=== PATIENT | male | born 1955 | race Caucasian/White ===

== ENCOUNTER 2021-10-23 08:03 | Emergency (ER) | payer MEDICARE ==
[~2021-10-23] VITALS: Ht 185.4 cm; Wt 86.0 kg
[2021-10-23 09:23] LABS: HEMATOCRIT 44.9 % (39.0-50.0); HEMOGLOBIN 15.2 g/dl (14.0-18.0); IMMATURE GRANULOCYTES 0.6 % (0.0-5.0); MEAN CELL VOLUME 90.5 fL CALC (80.0-100.0); MEAN CORPUSCULAR HGB 30.6 pG CALC (26.0-32.0); MEAN CORPUSCULAR HGB CONC 33.9 g/dL CAL (32.0-36.0); NEUT# 4.97 thou/uL (1.82-7.42); RED BLOOD COUNT 4.96 mill/uL (4.70-6.10)
[2021-10-23 10:01] LABS: ALBUMIN 4.2 g/dL (3.2-5.0); BILIRUBIN, TOTAL 1.1 mg/dL (0.0-1.4); CREATININE 1.5 mg/dL (0.7-1.3); POTASSIUM 4.7 mmol/l (3.5-5.1); TOTAL PROTEIN 6.9 g/dL (6.3-8.2)
[2021-10-23 11:35] LABS: URINE BILIRUBIN - DIPSTICK NEGATIVE (NEGATIVE); URINE BLOOD DIPSTICK LARGE (NEGATIVE); URINE COLOR YELLOW; URINE GLUCOSE - DIPSTICK NEGATIVE (NEGATIVE); URINE KETONE TRACE mg/dL (NEGATIVE); URINE LEUK ESTERASE NEGATIVE (NEGATIVE); URINE PH 5.5 (4.5-8.0); URINE PROTEIN - DIPSTICK TRACE mg/dL (NEG-TRACE); URINE SPECIFIC GRAVITY >=1.030; URINE UROBILINOGEN - DIPSTICK 0.2 E.U./dL (0.2)
[2021-10-23 11:39] LABS: URINE NITRITE - DIPSTICK NEGATIVE (Negative)
[2021-10-23 11:45] LABS: URINE RENAL EPITHELIAL CELLS FEW hpf; URINE TRANSITIONAL EPI. CELLS RARE hpf
[2021-10-23] MEDS ORDERED: ULTRAM50 M1 PO (11:45)
[2021-10-23] MEDS ORDERED: TAMSULOSIN0.4 MG PO (11:45)
[2021-10-23 13:06] VITALS: BP 152/83
== END 2021-10-23 13:23 | disposition home or self-care (01) ==
LOC: ED 08:03
PROVIDERS: Emergency Medicine
DX: N13.2 Hydronephrosis with renal and ureteral calculous obstruction (principal); Z87.442 Personal history of urinary calculi

== ENCOUNTER 2021-11-22 15:00 | Emergency (ER) | payer MEDICARE ==
[2021-11-22] VITALS (23 sets, daily range): BP systolic 85–175; BP diastolic 55–132
[~2021-11-22] VITALS: Ht 185.4 cm; Wt 89.5 kg
[~2021-11-22 15:00] MED LIST: TAMSULOSIN0.4 MG PO; ULTRAM50 M1 PO
[2021-11-22 15:25] LABS: HEMATOCRIT 44.8 % (39.0-50.0); HEMOGLOBIN 15.4 g/dl (14.0-18.0); IMMATURE GRANULOCYTES 0.2 % (0.0-5.0); MEAN CELL VOLUME 89.6 fL CALC (80.0-100.0); MEAN CORPUSCULAR HGB 30.8 pG CALC (26.0-32.0); MEAN CORPUSCULAR HGB CONC 34.4 g/dL CAL (32.0-36.0); NEUT# 3.5 thou/uL (1.82-7.42); RED CELL DISTRI WIDTH 13.5 % (11.5-15.5)
[2021-11-22 15:39] LABS: ALBUMIN 4.8 g/dL (3.2-5.0); ALKALINE PHOSPHATASE 108 u/l (38-126); BILIRUBIN, TOTAL 0.8 mg/dL (0.0-1.4); BUN 18 mg/dL (8-23); BUN/CREATININE RATIO 17 (12-20 (CALC)); CARBON DIOXIDE 26 mmol/l (22-30); CHLORIDE 105 mmol/l (95-108); CREATININE 1.1 mg/dL (0.7-1.3); GFR > 60 ML/MIN (>=60 (CALC)); GFR FOR AFR.AMER. > 60 ML/MIN (>=60 (CALC)); SGOT/AST 30 u/l (19-48); SODIUM 144 mmol/l (137-146); TOTAL PROTEIN 7.8 g/dL (6.3-8.2)
[2021-11-22 15:41] LABS: ANION GAP 17 (6-22 (CALC)); POTASSIUM 3.7 mmol/l (3.5-5.1)
[2021-11-22 15:51] LABS: MYOGLOBIN 229 ng/mL (0 - 121)
== END 2021-11-22 18:55 | disposition short-term general hospital (02) ==
LOC: ED 15:00
PROVIDERS: Emergency Medicine
DX: I21.4 Non-ST elevation (NSTEMI) myocardial infarction (principal); Z87.442 Personal history of urinary calculi
CPT/HCPCS: J1644